=== PATIENT | female | born 1960 | race Caucasian/White ===

== ENCOUNTER 2017-03-29 14:19 | Emergency (ER) | payer MEDICARE, SELFPAY ==
[~2017-03-29] VITALS: Ht 162.6 cm; Wt 63.0 kg
[2017-03-29 14:46] VITALS: BP 148/74
== END 2017-03-29 15:33 | disposition home or self-care (01) ==
LOC: ED 15:27
DX: T63.301A Toxic effect of unspecified spider venom, accidental (unintentional), initial encounter (principal); E03.9 Hypothyroidism, unspecified; Y92.009 Unspecified place in unspecified non-institutional (private) residence as the place of occurrence of the external cause
CPT/HCPCS: 99283